=== PATIENT | male | born 1985 | race Caucasian/White ===

== ENCOUNTER → 2016-10-31 | Day surgery (SDC) | payer OTHER ==
[~2016-10-31] VITALS: Ht 175.3 cm; Wt 55.5 kg
[~2016-10-31] MED LIST: ADVIL200 MG PO; AUGMENTIN 875-1 EACH PO; CENTRUM MULTIG80 MCG PO; PROMETHAZINE-C240 ML PO
== END ==
LOC: GPOC 10-28 08:00 → GOPP 11-04 08:00 → GEND 11-04 08:00 → GSIP 11-04 08:00
PROC: 0DB68ZX Excision of Stomach, Via Natural or Artificial Opening Endoscopic, Diagnostic (ICD-10-PCS; principal; 2016-10-31)
PROC: 0DBK8ZX Excision of Ascending Colon, Via Natural or Artificial Opening Endoscopic, Diagnostic (ICD-10-PCS; 2016-10-31)
PROC: 0DBM8ZX Excision of Descending Colon, Via Natural or Artificial Opening Endoscopic, Diagnostic (ICD-10-PCS; 2016-10-31)
DX: K29.50 Unspecified chronic gastritis without bleeding (principal); Z21 Asymptomatic human immunodeficiency virus [HIV] infection status; Z87.891 Personal history of nicotine dependence; Z88.0 Allergy status to penicillin; Z79.899 Other long term (current) drug therapy
CPT/HCPCS: J2001; J7030